=== PATIENT | male | born 1965 | race African-American/Black ===

== ENCOUNTER 2018-03-24 23:50 | Emergency (ER) | payer OTHER ==
[~2018-03-24] VITALS: Ht 167.6 cm; Wt 64.9 kg
--- NOTE | 2018-03-24 23:52 | ED PSYCHIATRIC COMPLAINT ---
See Addendum History of Present Illness General Chief Complaint: Psychiatric Related Complaint Stated Complaint: BIBA +SI Source: patient Exam Limitations: no limitations Allergies Coded Allergies: No Known Allergies (03/20/18) Triage Nurses Notes Reviewed? yes Onset: Abrupt Duration: day(s): Timing: recent history HPI: 03/25/18 52-year-old male presents to the emergency department for depression with suicidal ideation. 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 He says he has a past medical history of lupus and is been on gabapentin. He is currently incarcerated and unable to get his medications. He admits to depression and had verbalized suicidal ideation. (Benigno Briceño DO) Vital Signs & Intake/Output Vital Signs & Intake/Output Vital Signs Date Time Temp Pulse Resp B/P B/P Pulse O2 O2 Flow FiO2 Mean Ox Delivery Rate 03/26 1400 98.4 85 18 134/88 98 Room Air 03/26 0842 97.2 65 20 141/89 100 Room Air 03/25 2114 97.0 63 18 128/79 100 Room Air 03/25 1939 96.0 66 20 152/92 99 Room Air ED Intake and Output 03/26 0000 03/25 1200 Intake Total 60 Output Total Balance 60 Intake, Oral 60 Reconcile Medications No Known Home Medications (Benigno Briceño DO (TBS)) Past History Medical History Any Pertinent Medical History? see below for history Neurological: NONE EENT: NONE Cardiovascular: NONE Respiratory: NONE Gastrointestinal: NONE Hepatic: NONE Renal: NONE Musculoskeletal: LUPUS Psychiatric: depression Endocrine: NONE Surgical History Surgical History: non-contributory Psychosocial History What is your primary language Syriac Family History Hx Contributory? No (Benigno Briceño DO) Review of Systems Review of Systems Constitutional: Denies: fever. EENTM: Denies: visual changes. Respiratory: Reports: no symptoms. Cardiovascular: Denies: chest pain. GI: Denies: abdominal pain. Genitourinary: Reports: no symptoms. Musculoskeletal: Reports: see HPI. Skin: Denies: rash. Neurological/Psychological: Reports: see HPI. Hematologic/Endocrine: Reports: no symptoms. Immunologic/Allergic: Reports: no symptoms. (Benigno Briceño DO) Physical Exam Physical Exam General Appearance: well developed/nourished, alert, awake, anxious, mild distress Head: atraumatic, normal appearance Eyes: Bilateral: normal appearance, PERRL, EOMI. Ears, Nose, Throat: normal pharynx, normal ENT inspection Neck: normal inspection, supple, full range of motion Respiratory: normal breath sounds, chest non-tender Cardiovascular: regular rate/rhythm Gastrointestinal: non-tender Extremities: normal range of motion (RIGHT KNEE IMMOBILIZER) Neurological/Psychiatric: no motor/sensory deficits, awake, alert Appearance/Memory/Insight: appropriate appearance Behavoir/Eye Contact/Speech: cooperative Thoughts/Hallucinations: no apparent hallucination Skin: intact, normal color, warm/dry SAD PERSONS SAD PERSONS Response Value Male Sex? yes 1 Age <19 or >45 years? yes 1 Depression/Hopelessness? yes 2 Previous Attempts/Psych Care yes 1 Excessive Ethanol/Drug Use? yes 1 Rational Thinking Loss? yes 2 Single//? yes 1 Social Support? has no support 1 Stated Future Intent? yes 2 Total 12 SAD PERSONS Done? yes (Benigno Briceño DO) Progress Differential Diagnosis: drug intoxication, drug overdose Initial ED EKG: none (Benigno Briceño DO) Plan of Care: Orders Procedure Date/time Status Continuous Observation Monitor 03/26 1900 Active Continuous Observation Monitor 03/26 1500 Active Continuous Observation Monitor 03/26 1100 Active Continuous Observation Monitor 03/26 0700 Active Current Medications Sig/Sarita Start time Last Medication Dose Stop Time Status Admin Diphenhydramine HCl 50 MG Q6 PRN 03/25 2315 AC (Benadryl) Gabapentin 300 MG Q8 03/25 1400 UNVr 03/26 (Neurontin) 1447 We'll check labs and have the patient evaluated by crisis. He was given 600 mg of gabapentin. (Benigno Briceño DO) (Benigno Briceño DO ([facility])) Hand-Off Endorsed To: Rupesh William MD Endorsed Time: 1899 Pending: other (BED SEARCH) Comments: Patient has been seen and evaluated by icebox man. A bed search has been initiated. (Manfred MAI,Taqueria Olivas) Hand-Off Endorsed To: Mark Núñez MD Endorsed Time: 07 Pending: other (Rupesh William MD) Comments: Cleared by psychiatry for discharge to [facility] under suicide watch. (Mark Núñez MD) Departure Departure Condition: Stable Clinical Impression Primary Impression: Depression (emotion) Secondary Impressions: Lupus Referrals: Patient Has No Primary Care Dr (PCP/Family) Comments 03/25/18 The patient is pending evaluation by crisis. He will be signed out to Dr. Shearer at 7 AM (Benigno Briceño DO) Departure Prescriptions: Current Visit Scripts No Known Home Medications (Benigno Briceño DO (MOODY)) Departure Time of Disposition: 1505 Disposition: OTHER [facility] Departure Forms: General Discharge Information (Mark Núñez MD) Departure Forms: Customer Survey General Discharge Information Comments 03/25/18 The patient is pending evaluation by crisis. He will be signed out to Dr. Shearer at 7 AM (Benigno Briceño DO)
[2018-03-25 00:47] LABS: ABSOLUTE BASOPHIL COUNT 0 /CUMM (0.0-0.2); ABSOLUTE EOSINOPHIL COUNT 0.1 /CUMM (0.0-0.7); ABSOLUTE GRANULOCYTE CT 1.7 /CUMM (1.4-6.5); ABSOLUTE LYMPH COUNT 1.2 /CUMM (1.2-3.4); ABSOLUTE MONOCYTE COUNT 0.6 /CUMM (0.10-0.60); BASOPHIL % 0 % (0.0-2.0); EOSINOPHIL % 1.6 % (0-5); HEMATOCRIT 32.7 % (42-52); MEAN CORPUSCULAR HGB 28.7 PG (27.0-31.0); MEAN CORPUSCULAR HGB CONC 33.8 G/DL (33.0-37.0); MEAN CORPUSCULAR VOLUME 85.1 FL (80.0-94.0); MEAN PLATELET VOLUME 7.5 FL (7.4-10.4); PLATELET COUNT 248 /CUMM (130-400); RBC DISTRIBUTION WIDTH 15.4 % (11.5-14.5); RED BLOOD CELL CT 3.84 /CUMM (4.70-6.10); WHITE BLOOD CELL COUNT 3.6 /CUMM (4.8-10.8)
[2018-03-25 01:07] LABS: GRANULOCYTE % 46.7 % (42.2-75.2)
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
[2018-03-26 14:00] VITALS: BP 134/88
== END 2018-03-26 15:15 ==
LOC: ERH 23:50
PROVIDERS: Emergency Medicine
DX: F32.9 Major depressive disorder, single episode, unspecified (principal); L93.0 Discoid lupus erythematosus
CPT/HCPCS: 80307; 90714; G0463; G0480